=== PATIENT | male | born 1985 | race Caucasian/White ===

== ENCOUNTER 2022-12-14 08:10 | Emergency (ER) | payer BC ==
[2022-12-14 08:34] LABS: #Basophils 0.1 thou/uL (0.0-0.2); #Eosinphils 0.1 thou/uL (0.0-0.7); #Monocytes 0.9 thou/uL (0.11-0.59); #Neutrophils 5.3 thou/uL (1.40-6.50); %Basophils 0.6 % (0.0-1.0); %Eosinophils 1.4 % (0.0-10.0); %Lymphocytes 24.1 % (21.0-51.0); %Monocytes 10.3 % (0.0-10.0); %Neutrophils 63.4 % (42.0-75.0); Hemoglobin 15.7 g/dL (14.0-18.0); Mean Corpuscular HGB CONC 34.7 g/dL (32.0-36.0); Mean Corpuscular Hemoglobin 32.5 pg (27.0-31.0); Mean Corpuscular Volume 93.6 fl (78.0-98.0); Mean Platelet Volume 10.4 fL (7.4-10.4); Platelet Count 255 10x3/uL (130-400); RBC Distribution Width 12.2 % (11.5-14.5); Red Blood Cell (RBC) Count 4.83 mill/uL (4.70-6.10); White Blood Cell (WBC) Count 8.4 10x3/uL (4.8-10.8)
[2022-12-14 09:05] LABS: ALT (SGPT) 74 U/L (8-55); AST (SGOT) 45 U/L (5-34); Albumin 4.8 g/dL (3.5-5.0); Alkaline Phosphatase 108 U/L (40-110); Anion Gap 19 mmol/L (10-20); BUN (Urea Nitrogen) 11 mg/dL (8.9-20.6); Bilirubin, Total 0.4 mg/dL (0.2-1.2); Calc. Creatinine Clearance 0 mL/min (70-130); Calcium 10.7 mg/dL (7.8-10.44); Carbon Dioxide 20 mmol/L (22-29); Chloride 104 mmol/L (98-107); Estimated GFR 119; Globulin 3.3 g/dL (2.4-3.5); Glucose 92 mg/dL (70-105); Potassium 4.1 mmol/L (3.5-5.1); Protein, Total 8.1 g/dL (6.0-8.3); Sodium 139 mmol/L (136-145)
== END 2022-12-14 10:27 | disposition home or self-care (01) ==
LOC: ERS 08:10
DX: R07.9 Chest pain, unspecified (principal); F17.290 Nicotine dependence, other tobacco product, uncomplicated
CPT/HCPCS: 36415; 71046; 80053; 83690; 84484; 85025; 93005; 94760

== ENCOUNTER 2022-12-25 07:38 | Inpatient (IN) | payer OTHER, BC ==
[2022-12-25] MEDS ORDERED: Ondansetron PF 4 MG/2 ML Vial ONE (07:57)
[2022-12-25] MEDS ORDERED: Boostrix 0.5 ML (Tdap) VIAL (>/=7 yrs of age) ONE (07:57)
[2022-12-25] MEDS ORDERED: Morphine 4 MG/ML VIAL ONE ×2 (07:57→08:39)
[2022-12-25 08:39] LABS: #Basophils 0.1 thou/uL (0.0-0.2); #Eosinphils 0.1 thou/uL (0.0-0.7); #Monocytes 0.6 thou/uL (0.11-0.59); #Neutrophils 7.8 thou/uL (1.40-6.50); %Basophils 0.5 % (0.0-1.0); %Eosinophils 0.7 % (0.0-10.0); %Lymphocytes 12.2 % (21.0-51.0); %Monocytes 6.4 % (0.0-10.0); %Neutrophils 79.3 % (42.0-75.0); Hemoglobin 14.4 g/dL (14.0-18.0); Mean Corpuscular HGB CONC 34.4 g/dL (32.0-36.0); Mean Corpuscular Hemoglobin 32.2 pg (27.0-31.0); Mean Corpuscular Volume 93.7 fl (78.0-98.0); Platelet Count 237 10x3/uL (130-400); RBC Distribution Width 11.9 % (11.5-14.5); Red Blood Cell (RBC) Count 4.47 mill/uL (4.70-6.10); White Blood Cell (WBC) Count 9.8 10x3/uL (4.8-10.8)
[2022-12-25] MEDS ORDERED: Ketorolac Tromethamine 30 MG/ML VIAL ONE (08:39)
[2022-12-25 08:53] LABS: PTT 25.6 sec (22.9-36.1); Prothrombin Time 13.3 sec (12.0-14.7)
[2022-12-25 09:08] LABS: ALT (SGPT) 107 U/L (8-55); AST (SGOT) 68 U/L (5-34); Albumin 4.5 g/dL (3.5-5.0); Alcohol Less than 10.0 mg/dL (Less than 10); Alkaline Phosphatase 98 U/L (40-110); Anion Gap 18 mmol/L (10-20); BUN (Urea Nitrogen) 19 mg/dL (8.9-20.6); Bilirubin, Total 0.6 mg/dL (0.2-1.2); Calc. Creatinine Clearance 0 mL/min (70-130); Calcium 10.4 mg/dL (7.8-10.44); Carbon Dioxide 19 mmol/L (22-29); Chloride 102 mmol/L (98-107); Estimated GFR 117; Globulin 2.8 g/dL (2.4-3.5); Glucose 105 mg/dL (70-105); Lipase 22 U/L (8-78); Potassium 3.8 mmol/L (3.5-5.1); Protein, Total 7.3 g/dL (6.0-8.3); Sodium 135 mmol/L (136-145)
[2022-12-25] MEDS ORDERED: HYDROmorphone 0.5 MG/0.5 ML SYRINGE ONE (09:16)
[2022-12-25] MEDS ORDERED: Iopamidol-370 76% 500 ML MDV (1 ML CHARGE) ONE (09:25)
[2022-12-25] MEDS ORDERED: Ondansetron ODT 4 MG TAB PO PRN (09:33)
[2022-12-25] MEDS ORDERED: Dextrose 5% in Water 1,000 ML IV PRN (09:33)
[2022-12-25] MEDS ORDERED: Dextrose 50% Abboject 50 ML SYRINGE SLOW IVP PRN (09:33)
[2022-12-25] MEDS ORDERED: Ondansetron PF 4 MG/2 ML Vial IVP PRN (09:33)
[2022-12-25] MEDS ORDERED: Glucagon 1 MG/ML KIT IM PRN (09:33)
[2022-12-25] MEDS ORDERED: hydrALAZINE 20 MG/ML VIAL SLOW IVP PRN (09:33)
[2022-12-25] MEDS ORDERED: TETANUS, DIPHTHERIA TOX,ADULT (TDVAX) 0.5 ML VIAL IM ONE (09:33)
[2022-12-25] MEDS ORDERED: Sodium Chloride 0.9% 1,000 ML IV SCH (09:45)
[2022-12-25] MEDS ORDERED: Rib Fracture Protocol PO PRN (09:45)
[2022-12-25] MEDS: traMADol HCl 50 MG TAB PO SCH ×3 (11:52→23:14)
[2022-12-25] MEDS: Acetaminophen 500 MG TAB PO SCH ×3 (11:53→23:15)
[2022-12-25] MEDS: Cyclobenzaprine 10 MG TAB PO PRN (11:53)
[2022-12-25] MEDS ORDERED: Morphine 4 MG/ML VIAL SLOW IVP PRN (11:57)
[2022-12-25] MEDS ORDERED: Morphine 2 MG/ML VIAL SLOW IVP PRN (11:57)
[2022-12-25 12:03] LABS: Lactic Acid 0.8 mmol/L (0.5-2.2)
[2022-12-25] MEDS: Ketorolac Tromethamine 30 MG/ML VIAL IVP SCH ×3 (12:36→23:15)
[2022-12-25] MEDS ORDERED: Ibuprofen 200 MG TAB PO SCH (14:00)
[2022-12-25] MEDS: Ipratropium/Albuterol 3 ML NEB NEB SCH ×2 (14:12→18:36)
[2022-12-25] MEDS: Gabapentin 300 MG CAP PO SCH ×2 (16:01→20:17)
[2022-12-25] MEDS: Oxazepam 10 MG CAP PO SCH ×2 (16:01→20:17)
[2022-12-25 17:03] VITALS: BMI 24.4
[2022-12-25] MEDS: Famotidine 20 MG TAB PO SCH (20:17)
[2022-12-26] MEDS: Ipratropium/Albuterol 3 ML NEB NEB SCH ×3 (00:10→15:38)
[2022-12-26] MEDS: Oxazepam 10 MG CAP PO SCH (05:14)
[2022-12-26] MEDS: traMADol HCl 50 MG TAB PO SCH ×2 (05:14→12:19)
[2022-12-26] MEDS: Acetaminophen 500 MG TAB PO SCH ×2 (05:15→12:19)
[2022-12-26] MEDS: Ketorolac Tromethamine 30 MG/ML VIAL IVP SCH ×2 (05:16→12:19)
[2022-12-26 06:23] LABS: #Eosinphils 0.2 thou/uL (0.0-0.7); #Monocytes 0.9 thou/uL (0.11-0.59); #Neutrophils 5.2 thou/uL (1.40-6.50); %Basophils 0.4 % (0.0-1.0); %Eosinophils 2.9 % (0.0-10.0); %Monocytes 12.3 % (0.0-10.0); Mean Corpuscular Hemoglobin 32.8 pg (27.0-31.0); Mean Platelet Volume 11.6 fL (7.4-10.4); Platelet Count 154 10x3/uL (130-400); RBC Distribution Width 12.5 % (11.5-14.5); Red Blood Cell (RBC) Count 3.41 mill/uL (4.70-6.10); White Blood Cell (WBC) Count 7.3 10x3/uL (4.8-10.8)
[2022-12-26 06:47] LABS: Anion Gap 11 mmol/L (10-20); BUN (Urea Nitrogen) 16 mg/dL (8.9-20.6); Calc. Creatinine Clearance 145 mL/min (70-130); Carbon Dioxide 24 mmol/L (22-29); Chloride 104 mmol/L (98-107); Estimated GFR 118; Glucose 113 mg/dL (70-105); Potassium 3.9 mmol/L (3.5-5.1); Sodium 135 mmol/L (136-145)
[2022-12-26 06:52] LABS: Hemoglobin 11.2 g/dL (14.0-18.0); Mean Corpuscular Volume 99.4 fl (78.0-98.0)
[2022-12-26] MEDS: Famotidine 20 MG TAB PO SCH (09:52)
[2022-12-26] MEDS: Gabapentin 300 MG CAP PO SCH ×2 (09:52→16:33)
[2022-12-26] MEDS: Cyclobenzaprine 10 MG TAB PO PRN (09:52)
[2022-12-26 12:08] VITALS: TEMP 98.5
[2022-12-26 16:07] VITALS: BP 134/76
== END 2022-12-26 17:15 | disposition home or self-care (01) | DRG 536 ==
LOC: ERS 07:38 → SURG A 09:33
PROVIDERS: ADMIT Surgery; ATTEND Surgery
DX: S32.592A Other specified fracture of left pubis, initial encounter for closed fracture (principal); S32.058A Other fracture of fifth lumbar vertebra, initial encounter for closed fracture; S32.10XA Unspecified fracture of sacrum, initial encounter for closed fracture; V03.99XA Pedestrian with other conveyance injured in collision with car, pick-up truck or van, unspecified whether traffic or nontraffic accident, initial encounter; Y92.481 Parking lot as the place of occurrence of the external cause; F12.10 Cannabis abuse, uncomplicated; S01.312A Laceration without foreign body of left ear, initial encounter
CPT/HCPCS: 36415; 70450; 71045; 71260; 72125; 72170; 74177; 80048; 80053; 80307; 83605; 83690; 85025; 85610; 85730; 86850; 86900; 86901; 90471; 90715; 94640; 96361; 96374; 96375; 96376; G0390; J1170; J1650; J1885; J2270; J2405; J7050; J7620; Q9967